=== PATIENT | male | born 1985 | race Asian ===

== ENCOUNTER → 2017-01-08 | Outpatient (CLI) | payer MEDICAID ==
[2017-01-08 12:55] LABS: HEMOGLOBIN 16.3 g/dL (14.1-18.0); LYMPH # 1.3 K/mm3 (0.7-4.5); LYMPH % 30.7 % (10-50)
[2017-01-08 14:15] LABS: BUN 8 mg/dL (7-18)
[2017-01-08 14:23] LABS: GFR (ESTIMATED) 114 ML/MIN (>60)
== END ==
LOC: LAB 12:43
PROVIDERS: Nurse Practitioner Family
DX: R53.83 Other fatigue (principal); E55.9 Vitamin D deficiency, unspecified

== ENCOUNTER → 2017-01-09 | Outpatient (CLI) | payer MEDICAID ==
--- NOTE | 2017-01-09 18:58 | RADIOLOGY REPORT PS360 ---
CT ABD PELVIS W/O CONTRAST COMPARISON: None HISTORY: Left flank pain for a couple weeks, hematuria TECHNIQUE: Multiaxial scans obtained from hemidiaphragms the pelvic floor and were performed without IV or oral contrast. Sagittal and coronal reformats were evaluated as well. FINDINGS: The lower lung lal are clear. The liver spleen stomach pancreas and gallbladder appear grossly normal. The adrenal glands are normal. The kidneys are normal in size and there are no calculi and is no obstructive uropathy of either kidney. There is a small hypodense lesion upper pole left kidney likely a small cortical cyst. Measuring 1.2 x 1.1 cm. Small bowel appears normal.. The appendix is normal. There is a moderate amount stool in the cecum and ascending colon. There is mild diffuse diverticulosis of the sigmoid colon but there is no evidence of diverticulitis. The urinary bladder and prostate appear normal. IMPRESSION: Small cortical cyst upper pole left kidney, moderate diverticulosis of the sigmoid colon without diverticulitis
== END ==
LOC: RAD 07:54
DX: R10.9 Unspecified abdominal pain (principal)

== ENCOUNTER → 2017-03-05 | Outpatient (CLI) | payer MEDICAID ==
--- NOTE | 2017-03-11 23:08 | RADIOLOGY REPORT PS360 ---
CT ABD PELVIS W/WO CONTRAST Ordering Physician: Denys Moura MD Patient Age: 31 years: Male HISTORY: LEFT RENAL MASS TECHNIQUE: [address] abdomen pelvis. Pre and postcontrast CT performed. To postcontrast image sets were utilized including 70 seconds & 10 minute delayed image set. Good. COMPARISON :CT abdomen without contrast 01/09/1970 FINDINGS No urinary tract calculi nor obstruction. Ureters are normal in course and caliber . Kidneys normal size. LEFT KIDNEY: Round hypodense likely debris-filled cyst 11 x 12 mm diameter.. Intermediate density 24hu most likely debris-filled cyst. Suggest ultrasound to confirm. No prominent enhancement although it does measure very slightly denser on some of the postcontrast images... This small area measures up to 22HU precontrast & 24-29HU postcontrast.-Which may merely reflect sampling variation with this minimal degree of change... Again It would suggest ultrasound to further evaluate. Also Follow-up in 6-[address] with & without contrast suggested for this Bosniak 2 feature,, particularly if a persistent hematuria, or & left flank pain. This small area is not changed appreciably since 01/09/[address] There is a second likely tiny cyst more superior & medially aspect of upper pole the left kidney.. 4X 5 mm .-on axial image 29 & coronal image 39 postcontrast... RIGHT KIDNEY. Unremarkable no mass. . Ureters unremarkable. The bladder appears satisfactory. No wall thickening. No calculi normal moderate size prostate and seminal vesicles unremarkable. Lung bases clear Liver, spleen, pancreas unremarkable. Adrenals unremarkable. No retroperitoneal nor mesenteric nor pelvic adenopathy. Moderate to generous stool is seen throughout the colon with prominent stool at rectum and right colon most notable.. The terminal ileum is unremarkable minimal fluid. Appendix is normal and extends along the right pelvic wall. Osseous structures, unremarkable. No lesions. -------IMPRESSION: 1. No urinary tract calculi nor obstruction 2. Left kidney.. 2 likely small cysts at upper pole: ... Most notable at [place] left kidney is a small 12 x 11 mm , likely small debris-filled cyst. Ultrasound suggested to further confirm cystic character.,. If ultrasound not definitive cyst, suggest 6-8 month follow-up CT.- Particularly if hematuria persists. ... A 2nd tiny 4 x 5 mm barely evident tiny cyst, more superior/ at upper pole left kidney. ... 3. Recommend ultrasound kidneys/abdomen to further evaluate . Consider Follow-up CT in 6-8 months particularly if hematuria or flank pain persists
== END ==
LOC: RAD 02-25 11:15
DX: N28.89 Other specified disorders of kidney and ureter (principal); D41.20 Neoplasm of uncertain behavior of unspecified ureter
CPT/HCPCS: Q9967